=== PATIENT | female | born 1930 | race Caucasian/White ===

== ENCOUNTER 2016-10-07 16:29 | Emergency (ER) | payer MEDICARE, MEDICAID ==
[~2016-10-07] VITALS: Ht 162.6 cm; Wt 73.0 kg
[2016-10-07] MEDS ORDERED: MORPHINE SULFATE 4 MG/ML CPJ (NOT FOR IM USE) IV STA (16:59)
[2016-10-07] MEDS ORDERED: ONDANSETRON HCL 4MG/2ML VIAL IV STA (16:59)
[2016-10-07] MEDS ORDERED: SODIUM CHLORIDE 0.9% 1,000 ML IV ONE (16:59)
[2016-10-07] MEDS ORDERED: CEFAZOLIN 1000MG PREMIX 50 ML IV ONE (17:00)
[2016-10-07] MEDS ORDERED: TETANUS, DIPHTHERIA, PERTUSSIS VAC/PF 0.5ML (>7YR OLD) IM ONE (17:00)
[2016-10-07 17:22] LABS: BASOPHILS % 1.2 % (0.0-2.0); CHLORIDE 102 mEq/L (98-107); EOSINOPHILS % 2.5 % (0.0-5.0); HEMOGLOBIN. 12.1 g/dL (12.0-16.0); LYMPHOCYTES % 17.9 % (20.0-50.0); MEAN CORPUSCULAR HEMOGLOBIN 29.3 pg (28.0-32.0); MEAN CORPUSCULAR VOLUME 86.8 fL (81.0-99.0); MEAN PLATELET VOLUME 8.4 fl (7.4-10.4); MONOCYTES % 6.2 % (2.0-8.0); NEUTROPHILS % 72.2 % (40.0-76.0); PLATELET 208 x1000/uL (130-400); RED BLOOD CELL COUNT 4.14 mill/uL (4.2-5.4); RED CELL DISTRIBUTION WIDTH 15.8 % (11.6-14.6)
[2016-10-07 17:24] LABS: INR 1.1; PROTHROMBIN TIME 11.4 sec
[2016-10-07 17:32] LABS: CARBON DIOXIDE 28 mEq/L (21-32)
[2016-10-07] MEDS ORDERED: PROPOFOL 200MG/20ML VIAL IV ONE (18:15)
[2016-10-07] MEDS ORDERED: ONDANSETRON HCL 4MG/2ML VIAL IV ONE (18:15)
[2016-10-07] MEDS ORDERED: LABETALOL 5MG/ML SYR 20 MG/4 ML SYRINGE IV ONE (20:30)
[2016-10-07 20:35] VITALS: BP 196/87
== END 2016-10-07 21:01 | disposition short-term general hospital (02) ==
LOC: ER 17:11
DX: S52.592B Other fractures of lower end of left radius, initial encounter for open fracture type I or II (principal); S52.692B Other fracture of lower end of left ulna, initial encounter for open fracture type I or II; W18.39XA Other fall on same level, initial encounter; Y93.89 Activity, other specified; Y92.098 Other place in other non-institutional residence as the place of occurrence of the external cause; Y99.8 Other external cause status; I25.10 Atherosclerotic heart disease of native coronary artery without angina pectoris; E11.9 Type 2 diabetes mellitus without complications; I10 Essential (primary) hypertension; H54.8 Legal blindness, as defined in USA; Z95.0 Presence of cardiac pacemaker; I51.7 Cardiomegaly
CPT/HCPCS: 25605; 36415; 71010; 73110; 80053; 85025; 85610; 90471; 90715; 96365; 96375; 96376; 99152; 99285; J0690; J2270; J2405; J3490; J7040; A4565; J2704; J7030